=== PATIENT | female | born 1955 | race African-American/Black ===

== ENCOUNTER 2024-09-01 12:11 | Observation (INO) ==
--- NOTE | 2024-09-01 12:51 | Emergency Department Note ---
HPI - General Adult General Chief complaint: General Complaint Stated complaint: Sent from [facility] Time Seen by Provider: 09/01/24 12:18 Source: patient and caregiver Mode of arrival: walk-in Limitations: no limitations History of Present Illness HPI narrative: This is a 69 year old female patient that presents to the ER with c/o needing a blood transfusion for low H&H and feels "wobbly" when her H&H is low. Patient denies any chest pain, abdominal pain, back pain, fever, chills, or N/V. Associated symptoms: Reports denies other symptoms Treatments prior to arrival: Reports none Related Data Home Medications Medication Instructions Recorded Confirmed acetaminophen 325 mg tablet 650 mg PO Q6H PRN fever or pain 09/01/24 09/01/24 allopurinol 100 mg tablet 100 mg PO DAILY 09/01/2407/23 amlodipine 10 mg tablet 10 mg PO DAILY 09/01/2407/23 apixaban 5 mg tablet (Eliquis) 5 mg PO Q12H 09/01/24 0 09/01/24 aspirin 81 mg tablet,delayed 81 mg PO DAILY 09/01/24 0 09/01/24 release (Enteric Coated Aspirin) atorvastatin 20 mg tablet 20 mg PO .hs 09/01/24 cetirizine 10 mg tablet 10 mg PO .hs 09/01/24 diphenhydramine HCl 25 mg capsule 50 mg PO Q6H PRN all ergic reaction 09/01/24 09/01/24 (Benadryl) docusate sodium 100 mg capsule 100 mg PO BID 09/01/24 09/01/24 (Colace) famotidine 40 mg tablet 40 mg PO DAILY 09/01/2407/23 guaifenesin 100 mg/5 mL oral 200 mg PO Q6H PRN cough 0 09/01/24 09/01/24 liquid (Adult Tussin Chest Congestion) hydralazine 25 mg tablet 25 mg PO Q8H 09/01/24 ipratropium 0.5 mg-albuterol 3 mg 3 ml inhalation Q6H PRN shortness 09/01/24 09/01/24 (2.5 mg base)/3 mL nebulization of breath or wheezing soln levothyroxine 200 mcg tablet 200 mcg PO DAILY 09/01/24 09/01/24 losartan 50 mg tablet 50 mg PO DAILY 09/01/2407/23 melatonin 10 mg capsule 10 mg PO .hs 09/01/24 meloxicam 7.5 mg tablet 7.5 mg PO Q12H 09/01/2407/23 menthol 10 mg lozenges 10 mg mucous membrane Q2H IN N sore 09/01/24 09/01/24 throat metformin 1,000 mg tablet 1,000 mg PO Q12H 09/01/24 naphazoline 0.025 %-pheniramine 1 drp ophthalmic (eye) Q12H PRN 09/01/24 09/01/24 0.3 % eye drops (Allergy Eye allergy symptoms (naphazoline-pheniramine)) oxymetazoline 0.05 % nasal spray 2 spray intranasal Q1 2H PRN nasal 09/01/24 09/01/24 (Nasal [place] (oxymetazoline)) congestion umeclidinium 62.5 mcg-vilanterol 1 inh inhalation Q24H 09/01/24 09/01/24 25 mcg/actuation powdr for inhalation (Anoro Ellipta) Allergies Allergy/AdvReac Type Severity Reaction Status Date / Time shrimp Allergy Unknown Verified 09/01/24 12:41 PERNELL Inhibitors Allergy Verified 09/01/24 12:41 baclofen Allergy Verified 09/01/24 12:41 black pepper Allergy Verified 09/01/24 12:41 iodine Allergy Verified 09/01/24 12:41 lisinopril Allergy Verified 09/01/24 12:41 peanut Allergy Verified 09/01/24 12:41 Review of Systems Status of ROS 10 or more systems reviewed and unremark able except as noted in history and below Constitutional Denies: fever, chills, change in weight, fatigue, malaise or night sweats Eyes Denies: change in vision, blurry vision, blind spots or light sensitivity Ears, nose, mouth, and throat Denies: throat pain, neck pain, throat swelling, difficulty swallowing, hoarseness, mouth pain or swelling of lips/tongue Cardiovascular Denies: chest pain, palpitations, edema, swelling of feet/ankles, lightheadedness or shortness of breath with exertion Respiratory Denies: shortness of breath, cough, wheezing, stridor, pain on inspiration, change in phlegm color or coughing up blood Gastrointestinal Denies: abdominal pain, nausea, vomiting, coffee grounds in vomit, heartburn, diarrhea or constipation Genitourinary Denies: painful urination, urinary frequency, urinary urgency, urinary incontinence or blood in urine Musculoskeletal Denies: back pain, neck pain, extremity pain, extremity swelling, joint pain or limited range of motion Integumentary/Breast Denies: rash, itching, redness, skin pain, skin tenderness or skin swelling Neurological Denies: headache, numbness in extremities, weakness in extremities, lack of coordination, dizziness, vertigo or confusion Psychiatric Denies: anxiety, mood swings, panic attacks, change in sleep pattern, hopelessness, loss of interest or irritability Endocrine Denies: excessive urination, excessive thirst, fatigue, cold intolerance, excessive sweating, flushing or heat intolerance Hematologic/Lymphatic Denies: easy bruising, easy bleeding or enlarged lymph n odes Allergic/Immunologic Denies: hives, throat swelling, tongue swelling, facial swelling, wheezing or itchy eyes PFSH [facility] Medical History (Updated 09/01/24 @ 12:46 by Stephanie Smart RN) Diabetes mellitus Major depressive disorder Hyperlipidemia Essential hypertension COPD (chronic obstructive pulmonary disease) Diastolic heart failure Voice and resonance disorder Hypothyroidism Gout Dry eye syndrome CKD (chronic kidney disease) Cataracts, bilateral Social History Smoking status: never smoker Second hand tobacco smoke exposure: No Within the past year, how often did you have a drink containing alcohol: never Within the past year, how often did you have six or more drinks on one occasion: never Score interpretation: A score less than 3 is consistent with normal alcohol consumption. Non-prescribed substance use: denies use What is your current living situation: I presently have a place to live Problems where you live: no known problems In the past 12 months, utilities in danger of being shut off: no In past 12 months, lack of transportation kept you from medical appts, meetings, work, or getting things needed for daily living: No How hard is it for you to pay for the very basics like food, housing, medical care, and heating: decline to answer Past 12 mos, fear food will run out before able to buy more: never true In past 12 months, food didn't last until money to buy more: never true Are you following a diet prescribed by a doctor: No Are you following a special diet: No Do you want help finding or keeping work or a job: I do not need or want help Known occupational exposures/hazards: No Highest level of school completed/degree received: decline to answer Do you want help with school or training: No How many days of moderate to strenuous exercise, like a brisk walk, did you do in the last 7 days: decline to answer Caffeine: No How often does anyone, including family, friends and others, physically hurt you : never How often does anyone, including family, friends and others, insult or talk down to you: never How often does anyone, including family, friends and others, threaten you with harm: never How often does anyone, including family, friends and others, scream or curse at you: never Firearms in home: no Do you need help with ADLs: I don't need any help Due to a physical, mental, or emotional condition, do you have difficulty doing errands alone such as visiting a doctor's office or shopping: No Little interest or pleasure in doing things: nearly every day Feeling down, depressed, or hopeless: nearly every day Due to disability, difficulty making decisions: No Do you think of yourself as: straight/heterosexual Gender Identity: decline to answer Are you currently sexually active: No Are you using contraception or practicing any form of control: No service: No Exam Constitutional: normal general appearance and no apparent distress Vital Signs - 24 hr 09/01/24 12:37 Temperature 98.1 F Pulse Rate 57 L Respiratory Rate 16 Blood Pressure 151/47 Pulse Oximetry 99 Oxygen Delivery Me thod Room Air HENMT: normocephalic, head/scalp atraumatic, hearing grossly normal bilaterally, external ears normal, EACs normal, nasal mucous membranes normal, external nose normal, oral mucous membranes normal and oropharynx normal Eyes: PERRL, EOMs intact bilaterally, conjunctivae normal and no scleral icterus Neck/C-Spine: visual inspection normal and trachea midline Lymph: no lymphadenopathy noted Chest: inspection of chest normal Respiratory: breath sounds equal bilaterally, normal respiratory effort, clear to auscultation bilaterally, no wheezes, no rales, no retractions, no use of accessory muscles and chest percussion normal Cardiovascular: normal heart rate noted, regular rhythm noted, no gallop, no rub, no murmur, no JVD, no clicks, peripheral pulses 2+ throughout, no bruits noted and no additional abnormal heart sounds Gastrointestinal: abdomen normal to inspection, abdomen soft to palpation, nontender to palpation, nontender to percussion, nondistended, normoactive bowel sounds, no hepatosplenomegaly, no masses, no pulsatile mass, no ascites and no hernia Genitourinary: no CVA tenderness Back/Pelvis: spine normal to inspection Extremities: normal to inspection, normal to palpation, no tenderness, full ROM, no joint enlargement and no deformity Neurology: no movement abnormality noted, no sensory deficits noted, speech normal, no fasciculations noted and GCS normal Psychiatry: mental status grossly normal, oriented x3 and thought process normal Skin: skin color normal Course Course Hospital Course: 1258: due to patient having Low H&H will admit patient to the medical floor for blood transfusion.VSS, no s/s of acute distress noted Vital Signs Vital signs: Vital Signs Temperature 98.1 F 09/01/24 12:37 Pulse Rate 57 L 09/01/24 12:37 Respiratory Rate 16 09/01/24 12:37 Blood Pressure 151/47 09/01/24 12:37 Pulse Oximetry 99 09/01/24 12:37 Oxygen Delivery Method Room Air 09/01/24 12:37 Temperature 98.1 F 09/01/24 12:37 Pulse Rate 57 L 09/01/24 12:37 Respiratory Rate 16 09/01/24 12:37 Blood Pressure 151/47 09/01/24 12:37 Pulse Oximetry 99 09/01/24 12:37 Oxygen Delivery Method Room Air 09/01/24 12:37 Medical Decision Making Differential Diagnosis Differential Diagnosis: viral illness Medical Records Medical records reviewed: Yes I reviewed the patient's medical records Lab Data Lab results reviewed: Yes I reviewed the patient's lab results Discharge Plan Discharge Patient Disposition: Admitted As Observation Condition: Stable Clinical Impression: Anemia, Low hemoglobin Time of Disposition: 13:00
[2024-09-01] MEDS ORDERED: ACETAMINOPHEN 500 MG TABLET PO PRN (13:01)
[2024-09-01] MEDS ORDERED: MAGNESIUM, ALUMINUM HYDROXIDE 30 ML ORAL.SUSP PO PRN (13:01)
[2024-09-01] MEDS: METFORMIN HCL 500 MG TABLET PO SCH (16:00)
[2024-09-01] MEDS: HYDRALAZINE HCL 25 MG TABLET PO SCH (16:00)
[2024-09-01] MEDS ORDERED: IPRATROPIUM/ALBUTEROL SULFATE 3 ML AMPUL.NEB INH PRN (16:00)
[2024-09-01] MEDS ORDERED: diphenhydrAMINE HCL 25 MG CAP PO PRN (16:00)
[2024-09-01] MEDS ORDERED: ACETAMINOPHEN 325 MG TABLET PO PRN (16:00)
[2024-09-01] MEDS: ALBUTEROL SULFATE INH SCH (16:00)
[2024-09-01] MEDS: IPRATROPIUM INH SCH (16:00)
[2024-09-01] MEDS: 0.9 % SODIUM CHLORIDE 250 ML IV ONE (17:00)
[2024-09-01] MEDS: APIXABAN 2.5 MG TABLET PO SCH (20:51)
[2024-09-01] MEDS: DOCUSATE SODIUM 100 MG CAPSULE PO SCH (20:51)
--- NOTE | 2024-09-01 22:35 | Progress Note ---
Progress Note: Subjective Subjective Interval history: Consulted on this 69 yo female in the ED this afternoon from [place] with recent onset KWOK, dizziness, weakness and general malaise. On her arrival in the ED she was denying any chest or abdominal pain, recent onset NVD, LE edema. Attending at the [facility] sent her to the ED when she was found to have a hemoglobin of just over 6. She does not have a PMHx anemia. She was initially typed and crossed for a single unit, I changed that to two units to reassess in a.m. Also ordered a full anemia profile, retic count, EKG and CXR as well as serial hemoccult screens for possible GIB. Exam Constitutional: normal general appearance and no apparent distress Vital Signs - 24 hr 09/01/24 12:37 09/01/24 12:45 09/01/24 13:01 Temperature 98.1 F Pulse Rate 57 L 52 L 53 L Pulse Rate [Left] Respiratory Rate 16 20 18 Blood Pressure 151/47 138/50 148/48 Blood Pressure [Le ft Arm] Pulse Oximetry 99 97 96 Oxygen Delivery Me thod Room Air Room Air Room Air 09/01/24 14:30 09/01/24 14:32 09/01/24 14:32 Temperature 98.1 F 98.1 F Pulse Rate 50 L Pulse Rate [Left] 61 Respiratory Rate 18 19 Blood Pressure 152/63 Blood Pressure [Le ft Arm] 147/46 Pulse Oximetry 96 96 Oxygen Delivery Me thod Room Air Room Air 09/01/24 17:03 09/01/24 17:25 09/01/24 18:25 Temperature 97.9 F 98.1 F 98.4 F Pulse Rate 54 L 56 L 62 Pulse Rate [Left] Respiratory Rate 20 20 20 Blood Pressure 153/47 147/45 131/41 Blood Pressure [Le ft Arm] Pulse Oximetry 97 96 97 Oxygen Delivery Me thod 09/01/24 20:00 09/01/24 20:00 09/01/24 20:20 Temperature 98.2 F 98.0 F Pulse Rate 58 L Pulse Rate [Left] 63 66 Respiratory Rate 20 21 18 Blood Pressure 103/48 Blood Pressure [Le ft Arm] 156/50 Pulse Oximetry 99 97 Oxygen Delivery Me thod Room Air HENMT: normocephalic, head/scalp atraumatic and oral mucous membranes normal Eyes: PERRL, EOMs intact bilaterally and no scleral icterus Neck/C-Spine: visual inspection normal, trachea midline and cervical full ROM noted Lymph: no lymphadenopathy noted Chest: inspection of chest normal Respiratory: breath sounds equal bilaterally and normal respiratory effort Cardiovascular: normal heart rate noted and regular rhythm noted Gastrointestinal: abdomen normal to inspection and abdomen soft to palpation Genitourinary: no CVA tenderness Back/Pelvis: spine normal to inspection and no thoracic spine tenderness Extremities: normal to inspection, normal to palpation and full ROM Neurology: community sports coordinator II-XII intact, no focal motor deficit noted and GCS normal Psychiatry: mental status grossly normal and oriented x3 Skin: skin color normal and no mottling no pallor or loss of sheen Progress Note: Objective Labs Labs: I reviewed all existing labs prior to admission and subsequent to updates. Pulse Oximetry SpO2 results: 97% RA Attestation: I have reviewed the pertinent pulse oximetry results. Progress Note: A&P Assessment and Plan (1) Anemia in chronic illness: Onset Date: ~09/01/24 Assessment and Plan: Transfuse (2) units PRBC, recheck H/H in a.m. Telemetry overnight. (2) HTN (hypertension): Onset Date: ~09/01/24 Assessment and Plan: Resume home meds as directed, low salt diet, no change to meds at this time Fall Risk Details [place] Fall Scale Risk Level: High Fall Risk Was a [facility] Med Consult for Fall Risk requested: yes Current Medications: Current Medications Acetaminophen (Acetaminophen 500 Mg Tablet) 500 mg PO Q6H PRN PRN Reason: MILD PAIN SCALE 1-4 Acetaminophen (Acetaminophen 325 Mg Tablet) 650 mg PO Q6H PRN PRN Reason: MILD PAIN SCALE 1-4 Albuterol Sulfate (Ipratropium/Albuterol Sulfate 3 Ml Ampul.Neb) 3 ml INH Q6H PRN PRN Reason: Shortness Of Breath Or Wheezing Albuterol Sulfate (Ipratropium/Albuterol Sulfate Inhaler 1 Puff) 1 puff INH QID [facility] Last Admin: 09/01/24 20:51 Dose: 1 puff Amlodipine Besylate (Amlodipine Besylate 5 Mg Tablet) 10 mg PO DAILY [facility] Apixaban (Apixaban 2.5 Mg Tablet) 5 mg PO BID [facility] Last Admin: 09/01/24 20:51 Dose: 5 mg Aspirin (Aspirin 81 Mg Tablet.Dr) 81 mg PO DAILY [facility] Diphenhydramine HCl (Diphenhydramine Hcl 25 Mg Cap) 50 mg PO Q6H PRN PRN Reason: Allergic Reaction Docusate Sodium (Docusate Sodium 100 Mg Capsule) 100 mg PO BID [facility] Last Admin: 09/01/24 20:51 Dose: 100 mg Famotidine (Famotidine 20 Mg Tablet) 40 mg PO DAILY [facility] Hydralazine HCl (Hydralazine Hcl 25 Mg Tablet) 25 mg PO TID [facility] Last Admin: 09/01/24 20:51 Dose: 25 mg Insulin Human Regular (Insulin Regular, Human 100 Unit/Ml) 0 unit SUBQ ACHS PRN; Protocol PRN Reason: hyperglycemia Levothyroxine Sodium (Levothyroxine Sodium 100 Mcg Tablet) 200 mcg PO QDAC [facility] Losartan Potassium (Losartan Potassium 50 Mg Tablet) 50 mg PO DAILY [facility] Magnesium Hydroxide (Magnesium, Aluminum Hydroxide 30 Ml Oral.Susp) 30 ml PO DAILY PRN PRN Reason: Dyspepsia Metformin HCl (Metformin Hcl 500 Mg Tablet) 1,000 mg PO BIDWM [facility] Last Admin: 09/01/24 16:00 Dose: 1,000 mg Time Spent With Patient Time: Total time spent is greater than 50% in coordination of care (as documented) at patient's floor/unit and/or counseling patient: Time with patient: 25 - 35 minutes
--- NOTE | 2024-09-02 06:33 | History & Physical Report ---
H&P: HPI History of Present Illness Chief complaint: Sent from [facility] Narrative: Consulted on this 69 yo female in the ED this afternoon from [facility] with recent onset KWOK, dizziness, weakness and general malaise. On her arrival in the ED she was denying any chest or abdominal pain, recent onset NVD, LE edema. Att ending at the [facility] sent her to the ED when she was found to have a hemoglobin of just over 6. She does not have a PMHx anemia. She was initially typed and crossed for a single unit, I changed that to two units to reassess in a.m. Also ordered a full anemia profile, retic count, EKG and CXR as well as serial hemoccult screens for possible GIB. Review of Systems Status of ROS 10 or more systems reviewed and unremark able except as noted in history and below Constitutional Denies: fever, chills, change in weight, fatigue, malaise or night sweats Eyes Denies: change in vision, blurry vision, blind spots or light sensitivity Ears, nose, mouth, and throat Denies: throat pain, neck pain, throat swelling, difficulty swallowing, hoarseness, mouth pain, swelling of lips/tongue or vertigo Cardiovascular Denies: chest pain, palpitations, edema, swelling of feet/ankles, lightheadedness or shortness of breath with exertion Respiratory Denies: shortness of breath, cough, wheezing, stridor, pain on inspiration, change in phlegm color or coughing up blood Gastrointestinal Denies: abdominal pain, nausea, vomiting, coffee grounds in vomit, heartburn, diarrhea, constipation or difficulty swallowing Genitourinary Denies: painful urination, urinary frequency, urinary urgency, urinary incontinence or blood in urine Musculoskeletal Denies: back pain, neck pain, extremity pain, extremity swelling, joint pain or limited range of motion Integumentary/Breast Denies: rash, itching, redness, skin pain, skin tenderness or skin swelling Neurological Denies: headache, numbness in extremities, weakness in extremities, lack of coordination, dizziness, vertigo or confusion Psychiatric Denies: anxiety, mood swings, panic attacks, change in sleep pattern, hopelessness, loss of interest or irritability Endocrine Denies: excessive urination, excessive thirst, fatigue, cold intolerance, excessive sweating, flushing or heat intolerance Hematologic/Lymphatic Denies: easy bruising, easy bleeding or enlarged lymph nodes Allergic/Immunologic Denies: hives, throat swelling, tongue swelling, facial swelling, wheezing or itchy eyes PFSH PFSH Medical History (Updated 09/02/24 @ 06:32 by RENETTA Asher) Diabetes mellitus Major depressive disorder Hyperlipidemia Essential hypertension COPD (chronic obstructive pulmonary disease) Diastolic heart failure Voice and resonance disorder Hypothyroidism Gout Dry eye syndrome CKD (chronic kidney disease) Cataracts, bilateral Social History Smoking status: never smoker Second hand tobacco smoke exposure: No Within the past year, how often did you have a drink containing alcohol: never Within the past year, how often did you have six or more drinks on one occasion: never Score interpretation: A score less than 3 is consistent with normal alcohol consumption. Non-prescribed substance use: denies use What is your current living situation: I presently have a place to live Problems where you live: no known problems In the past 12 months, utilities in danger of being shut off: no In past 12 months, lack of transportation kept you from medical appts, meetings, work, or getting things needed for daily living: No How hard is it for you to pay for the very basics like food, housing, medical care, and heating: decline to answer Past 12 mos, fear food will run out before able to buy more: never true In past 12 months, food didn't last until money to buy more: never true Are you following a diet prescribed by a doctor: No Are you following a special diet: No Do you want help finding or keeping work or a job: I do not need or want help Known occupational exposures/hazards: No Highest level of school completed/degree received: Jr High Do you want help with school or training: No How many days of moderate to strenuous exercise, like a brisk walk, did you do in the last 7 days: decline to answer Caffeine: No How often does anyone, including family, friends and others, physically hurt you : never How often does anyone, including family, friends and others, insult or talk down to you: never How often does anyone, including family, friends and others, threaten you with harm: never How often does anyone, including family, friends and others, scream or curse at you: never Firearms in home: no Do you need help with ADLs: I don't need any help Due to a physical, mental, or emotional condition, do you have difficulty doing errands alone such as visiting a doctor's office or shopping: No Little interest or pleasure in doing things: nearly every day Feeling down, depressed, or hopeless: nearly every day Due to disability, difficulty making decisions: No Do you think of yourself as: straight/heterosexual Gender Identity: decline to answer Are you currently sexually active: No Are you using contraception or practicing any form of control: No service: No Meds Home Medications and Allergies Home Medications Medication Instructions Recorded Confirmed Type acetaminophen 325 mg tablet 650 mg PO Q6H PRN fever or pain 09/01/24 09/01/24 History allopurinol 100 mg tablet 100 mg PO DAILY 09/01/2407/23 History amlodipine 10 mg tablet 10 mg PO DAILY 09/01/2407/23 History apixaban 5 mg tablet (Eliquis) 5 mg PO Q12H 09/01/24 0 09/01/24 History aspirin 81 mg tablet,delayed 81 mg PO DAILY 09/01/24 0 09/01/24 History release (Enteric Coated Aspirin) atorvastatin 20 mg tablet 20 mg PO .hs 09/01/24 History cetirizine 10 mg tablet 10 mg PO .hs 09/01/24 History diphenhydramine HCl 25 mg capsule 50 mg PO Q6H PRN all ergic reaction 09/01/24 09/01/24 History (Benadryl) docusate sodium 100 mg capsule 100 mg PO BID 09/01/24 09/01/24 History (Colace) famotidine 40 mg tablet 40 mg PO DAILY 09/01/2407/23 History guaifenesin 100 mg/5 mL oral 200 mg PO Q6H PRN cough 0 09/01/24 09/01/24 History liquid (Adult Tussin Chest Congestion) hydralazine 25 mg tablet 25 mg PO Q8H 09/01/24 History ipratropium 0.5 mg-albuterol 3 mg 3 ml inhalation Q6H PRN shortness 09/01/24 09/01/24 History (2.5 mg base)/3 mL nebulization of breath or wheezing soln levothyroxine 200 mcg tablet 200 mcg PO DAILY 09/01/24 09/01/24 History losartan 50 mg tablet 50 mg PO DAILY 09/01/2407/23 History melatonin 10 mg capsule 10 mg PO .hs 09/01/24 History meloxicam 7.5 mg tablet 7.5 mg PO Q12H 09/01/2407/23 History menthol 10 mg lozenges 10 mg mucous membrane Q2H AL N sore 09/01/24 09/01/24 History throat metformin 1,000 mg tablet 1,000 mg PO Q12H 09/01/24 History naphazoline 0.025 %-pheniramine 1 drp ophthalmic (eye) Q12H PRN 09/01/24 09/01/24 History 0.3 % eye drops (Allergy Eye allergy symptoms (naphazoline-pheniramine)) oxymetazoline 0.05 % nasal spray 2 spray intranasal Q1 2H PRN nasal 09/01/24 09/01/24 History (Nasal [place] (oxymetazoline)) congestion umeclidinium 62.5 mcg-vilanterol 1 inh inhalation Q24H 09/01/24 09/01/24 History 25 mcg/actuation powdr for inhalation (Anoro Ellipta) Allergies Allergy/AdvReac Type Severity Reaction Status Date / Time shrimp Allergy Unknown Verified 09/01/24 12:41 PERNELL Inhibitors Allergy Verified 09/01/24 12:41 baclofen Allergy Verified 09/01/24 12:41 black pepper Allergy Verified 09/01/24 12:41 iodine Allergy Verified 09/01/24 12:41 lisinopril Allergy Verified 09/01/24 12:41 peanut Allergy Verified 09/01/24 12:41 Exam Constitutional: normal general appearance, no apparent distress and average body habitus Vital Signs - 24 hr 09/01/24 12:37 09/01/24 12:45 09/01/24 13:01 Temperature 98.1 F Pulse Rate 57 L 52 L 53 L Pulse Rate [Left] Respiratory Rate 16 20 18 Blood Pressure 151/47 138/50 148/48 Blood Pressure [Le ft Arm] Pulse Oximetry 99 97 96 Oxygen Delivery Me thod Room Air Room Air Room Air 09/01/24 14:30 09/01/24 14:32 09/01/24 14:32 Temperature 98.1 F 98.1 F Pulse Rate 50 L Pulse Rate [Left] 61 Respiratory Rate 18 19 Blood Pressure 152/63 Blood Pressure [Le ft Arm] 147/46 Pulse Oximetry 96 96 Oxygen Delivery Me thod Room Air Room Air 09/01/24 17:03 09/01/24 17:25 09/01/24 18:25 Temperature 97.9 F 98.1 F 98.4 F Pulse Rate 54 L 56 L 62 Pulse Rate [Left] Respiratory Rate 20 20 20 Blood Pressure 153/47 147/45 131/41 Blood Pressure [Le ft Arm] Pulse Oximetry 97 96 97 Oxygen Delivery Me thod 09/01/24 20:00 09/01/24 20:00 09/01/24 20:20 Temperature 98.2 F 98.0 F Pulse Rate 58 L Pulse Rate [Left] 63 66 Respiratory Rate 20 21 18 Blood Pressure 103/48 Blood Pressure [Le ft Arm] 156/50 Pulse Oximetry 99 [facility] 09/01/24 21:20 09/02/24 00:12 09/02/24 06:00 Temperature 98.1 F 99.4 F 97.9 F Pulse Rate 64 Pulse Rate [Left] 51 L 53 L Respiratory Rate 20 19 19 Blood Pressure 153/70 Blood Pressure [Le ft Arm] 129/53 145/49 Pulse Oximetry 97 97 97 [facility] Room Air HENMT: normocephalic, head/scalp atraumatic and oral mucous membranes normal Eyes: PERRL and EOMs intact bilaterally Neck/C-Spine: visual inspection normal, trachea midline and cervical full ROM noted scar to lower anterior neck from thyroidectomy Lymph: no lymphadenopathy noted Chest: inspection of chest normal Respiratory: breath sounds equal bilaterally, normal respiratory effort, no wheezes and no rales Cardiovascular: normal heart rate noted, regular rhythm noted, no gallop, no rub, no murmur, no JVD and peripheral pulses 2+ throughout Gastrointestinal: abdomen normal to inspection and abdomen soft to palpation obese Genitourinary: bladder normal to palpation Back/Pelvis: spine normal to inspection, no thoracic spine tenderness and no lumbar spine tenderness Extremities: normal to inspection, normal to palpation and full ROM no edema Neurology: record press operator II-XII intact, speech normal, coordination normal and GCS normal facial tick noted Psychiatry: cooperative and affect normal Feel stressed/tense/nervous/anxious/difficulty sleeping: not at all Skin: skin color normal and no rash no pallor Assessment and Plan Assessment and Plan (1) Anemia in chronic illness: Onset Date: ~09/01/24 Assessment and Plan: Transfuse (2) units PRBC, recheck H/H in a.m. Telemetry overnight. Code(s): D63.8 - Anemia in other chronic diseases classified elsewhere (2) HTN (hypertension): Onset Date: ~09/01/24 Assessment and Plan: Resume home meds as directed, low salt diet, no change to meds at this time Qualifiers: Hypertension type: primary hypertension Qualified Code(s): I10 - Essential (primary) hypertension Code(s): I10 - Essential (primary) hypertension Plan Admit to obs (see orders) Supplemental O2 prn Telemetry Transfuse (2) units PRBCs Check for occult blood ro GIB Fall precautions Anemia profile Resume home meds as directed, low salt diet, no change to meds at this time Results Labs Labs: I have personally reviewed existing and recent labs for this patient from both [facility] and our ED. Hgb 6.4. BNP 116, retic count 1.2%. Anemia profile WNL. T&C performed for 2 units PRBC. Hemoccult ordered when available, no record of recent. Pulse Oximetry SpO2 results: 99% RA Attestation: I have reviewed the pertinent pulse oximetry results.
[2024-09-02 06:44] LABS: Basophils #(Absolute) Auto 0.1 (0.0-0.1); Basophils%(Percent) Auto 0.9 (0.1-0.85); Eosinophils#(Absolute)Auto 0.6 (0.0-0.2); Eosinophils%(Percent) Auto 5.5 % (0.4-2.8); Granulocytes % - Auto 60.4 % (47.8-71.3); Granulocytes#(Absolute)- Auto 6.2 (2.3-6.0); Hematocrit 24.5 % (35.9-46.7); Monocytes #(Absolute)- Auto 1.1 (1.1-3.1); Monocytes %(Percent)- Auto 10.3 % (3.6-9.8); Platelet Count 453 K/uL (152-353); White Blood Count 10.3 K/uL (4.3-9.3)
[2024-09-02 06:49] LABS: Potassium 4.4 mmol/L (3.6-5.2)
[2024-09-02] MEDS: AMLODIPINE BESYLATE 5 MG TABLET PO SCH (09:31)
[2024-09-02] MEDS: FAMOTIDINE 20 MG TABLET PO SCH (09:31)
[2024-09-02] MEDS: LOSARTAN POTASSIUM 50 MG TABLET PO SCH (09:31)
[2024-09-02] MEDS: ASPIRIN 81 MG TABLET.DR PO SCH (09:31)
[2024-09-02] MEDS: LEVOTHYROXINE SODIUM 100 MCG TABLET PO SCH (09:33)
[2024-09-02] MEDS ORDERED: 0.9 % SODIUM CHLORIDE 250 ML IV ONE (09:48)
--- NOTE | 2024-09-02 10:58 | Discharge Summary ---
DS: Providers Provider Date of admission: 09/01/24 13:01 Primary care physician: Ashley Gonzáles DO DS: Diagnosis Discharge Diagnosis (1) Anemia in chronic illness: Onset Date: ~09/01/24 (2) HTN (hypertension): Onset Date: ~09/01/24 Qualifiers: Hypertension type: primary hypertension Qualified Code(s): I10 - Essential (primary) hypertension DS: Summary Hospital Course Hospital Course: Ms. Boss was admitted on 09/01/24 from [facility] with recent onset KWOK, dizziness, weakness and general malaise. On her arrival in the ED she was de nying any chest or abdominal pain, recent onset NVD, LE edema. [facility] the [facility] her to the ED when she was found to have a hemoglobin of just over 6. She does not have a PMHx anemia. She was initially typed and crossed for a single unit, then later transfused a second unit during her stay after Hgb increased only to 7.6. Occult stool pending and patient is on eliquis. Patient was discharged on 09/02/24 back to [facility] to follow up with PCP. Status at Discharge Overall status at discharge: patient is back to baseline Time Spent with Patient Time attestation: Total time spent providing and/or coordinating discharge services: 35 min Time spent: greater than 30 minutes Exam Constitutional: normal general appearance and no apparent distress Vital Signs - 24 hr 09/01/24 12:37 09/01/24 12:45 09/01/24 13:01 Temperature 98.1 F Pulse Rate 57 L 52 L 53 L Pulse Rate [Left] Respiratory Rate 16 20 18 Blood Pressure 151/47 138/50 148/48 Blood Pressure [Le ft Arm] Pulse Oximetry 99 97 96 Oxygen Delivery Me thod Room Air Room Air Room Air 09/01/24 14:30 09/01/24 14:32 09/01/24 14:32 Temperature 98.1 F 98.1 F Pulse Rate 50 L Pulse Rate [Left] 61 Respiratory Rate 18 19 Blood Pressure 152/63 Blood Pressure [Le ft Arm] 147/46 Pulse Oximetry 96 96 Oxygen Delivery Me thod Room Air Room Air 09/01/24 17:03 09/01/24 17:25 09/01/24 18:25 Temperature 97.9 F 98.1 F 98.4 F Pulse Rate 54 L 56 L 62 Pulse Rate [Left] Respiratory Rate 20 20 20 Blood Pressure 153/47 147/45 131/41 Blood Pressure [Le ft Arm] Pulse Oximetry 97 96 97 Oxygen Delivery Me thod 09/01/24 20:00 09/01/24 20:00 09/01/24 20:20 Temperature 98.2 F 98.0 F Pulse Rate 58 L Pulse Rate [Left] 63 66 Respiratory Rate 20 21 18 Blood Pressure 103/48 Blood Pressure [Le ft Arm] 156/50 Pulse Oximetry 99 97 Oxygen Delivery Me thod Room Air 09/01/24 21:20 09/02/24 00:12 09/02/24 06:00 Temperature 98.1 F 99.4 F 97.9 F Pulse Rate 64 Pulse Rate [Left] 51 L 53 L Respiratory Rate 20 19 19 Blood Pressure 153/70 Blood Pressure [Le ft Arm] 129/53 145/49 Pulse Oximetry 97 97 97 Oxygen Delivery Ma thod Room Air Room Air 09/02/24 08:00 09/02/24 10:15 09/02/24 10:34 Temperature 97.7 F 97.9 F 98.1 F Pulse Rate 68 46 L Pulse Rate [Left] 54 L Respiratory Rate 19 20 20 Blood Pressure 117/63 157/64 Blood Pressure [Le ft Arm] 164/50 Pulse Oximetry 95 97 97 Oxygen Delivery Me thod Room Air HENMT: normocephalic, head/scalp atraumatic, hearing grossly normal bilaterally, external ears normal, EACs normal, nasal mucous membranes normal, external nose normal, oral mucous membranes normal and oropharynx normal Eyes: PERRL, EOMs intact bilaterally, conjunctivae normal and no scleral icterus Neck/C-Spine: visual inspection normal and trachea midline Lymph: no lymphadenopathy noted Chest: inspection of chest normal Respiratory: breath sounds equal bilaterally, normal respiratory effort, clear to auscultation bilaterally, no wheezes, no rales, no retractions, no use of accessory muscles and chest percussion normal Cardiovascular: normal heart rate noted, regular rhythm noted, no gallop, no rub, no murmur, no JVD, no clicks, peripheral pulses 2+ throughout, no bruits noted and no additional abnormal heart sounds Gastrointestinal: abdomen normal to inspection, abdomen soft to palpation, nontender to palpation, nontender to percussion, nondistended, normoactive bowel sounds, no hepatosplenomegaly, no masses, no pulsatile mass, no ascites and no hernia Genitourinary: no CVA tenderness Back/Pelvis: spine normal to inspection Extremities: normal to inspection, normal to palpation, no tenderness, full ROM, no joint enlargement and no deformity Neurology: no movement abnormality noted, no sensory deficits noted, speech normal, no fasciculations noted and GCS normal Psychiatry: mental status grossly normal, oriented x3 and thought process normal Skin: skin color normal DS: Data Data Completed and Pending Labs on day of discharge: Labs from last 24 hours 09/02/24 09/01/24 09/01/24 06:25 22:50 06:35 WBC 10.3 H RBC 3.4 L Hgb 7.6 L Hct 24.5 L MCV 73.0 L MCH 22.7 L MCHC 31.0 L RDW 19.4 H Plt Count 453 H MPV 7.5 Gran % 60.4 Lymph % (Auto) 22.9 [place] % (Auto) 10.3 H Eos % (Auto) 5.5 H Baso % (Auto) 0.9 H Lymph # (Auto) 2.4 [place] # (Auto) 1.1 Eos # (Auto) 0.6 H Baso # (Auto) 0.1 Absolute Gran (auto) 6.2 H Retic Count 1.2 Sodium 143 Potassium 4.4 Chloride 111.0 H Carbon Dioxide 25 Anion Gap 7.0 BUN 21 H Creatinine 0.9 Estimated GFR 69.2 Glucose 103 Calcium 8.4 L TIBC 315 Ferritin 12 B-Natriuretic Peptide 116.0 H Vitamin B12 195.0 Blood Type B Positive Antibody Screen Negative Crossmatch (AHG) See Detail Discharge Plan Discharge Disposition: [facility] Condition: Stable Discharge Medications: Continued allopurinol 100 mg tablet 100 mg PO DAILY amlodipine 10 mg tablet 10 mg PO DAILY umeclidinium-vilanterol [Anoro Ellipta] 62.5-25 mcg/actuation blister with device 1 inh INHALATION Q24H aspirin [Enteric Coated Aspirin] 81 mg tablet,delayed release (DR/EC) 81 mg PO DAILY atorvastatin 20 mg tablet 20 mg PO .hs levothyroxine 200 mcg tablet 200 mcg PO DAILY losartan 50 mg tablet 50 mg PO DAILY melatonin 10 mg capsule 10 mg PO .hs famotidine 40 mg tablet 40 mg PO DAILY cetirizine 10 mg tablet 10 mg PO .hs docusate sodium [Colace] 100 mg capsule 100 mg PO BID Eliquis 5 mg tablet 5 mg PO Q12H metformin 1,000 mg tablet 1,000 mg PO Q12H meloxicam 7.5 mg tablet 7.5 mg PO Q12H hydralazine 25 mg tablet 25 mg PO Q8H acetaminophen 325 mg tablet 650 mg PO Q6H PRN (Reason: fever or pain) diphenhydramine HCl [Benadryl] 25 mg capsule 50 mg PO Q6H PRN (Reason: allergic reaction) guaifenesin [Adult Tussin Chest Congestion] 100 mg/5 mL liquid 200 mg PO Q6H PRN (Reason: cough) ipratropium-albuterol 0.5 mg-3 mg(2.5 mg base)/3 mL solution for nebulization 3 ml inhalation Q6H PRN (Reason: shortness of breath or wheezing) oxymetazoline [Nasal [place] (oxymetazoline)] 0.05 % spray,non-aerosol 2 spray intranasal Q12H PRN (Reason: nasal congestion) menthol 10 mg lozenge 10 mg mucous membrane Q2H PRN (Reason: sore throat) Allergy Eye (naphazoline-phen) 0.025-0.3 % drops 1 drp ophthalmic (eye) Q12H PRN (Reason: allergy symptoms) Discharge Orders: Discharge Order (Routine); Ordered 09/02/24 Ordered By: [facility] Course: Ms. Boss was admitted on 09/01/24 from [facility] with recent onset KWOK, dizziness, weakness and general malaise. On her arrival in the ED she was denying any chest or abdominal pain, recent onset NVD, LE edema. Attending at the [facility] sent her to the ED when she was found to have a hemoglobin of just over 6. She does not have a PMHx anemia. She was initially typed and crossed for a single unit, then later transfused a second unit during her stay after Hgb increased only to 7.6. Occult stool pending and patient is on eliquis. Patient was discharged on 09/02/24 back to [facility] to follow up with PCP. Interventions: Discharge Assessment Last Done: 09/02/24 13:18 MED/SURG & ICU Observation Charge Sheet Last Done: 09/02/24 13:20 Print Language: Surinamese Follow-Ups: Ashley Gonzáles DO [Primary Care Provider, Medical]
[2024-09-02 12:56] VITALS: RESP 20; TEMP 98.1
[2024-09-02 14:11] VITALS: BP 147/64; PULSE 54
== END 2024-09-02 14:12 ==
LOC: MS 12:11 → ED 12:11 → MS 14:30
PROVIDERS: ADMIT Physician Assistant Medical; ATTEND Physician Assistant Medical
DX: Z91.013 Allergy to seafood; Z88.1 Allergy status to other antibiotic agents; Z79.01 Long term (current) use of anticoagulants; Z79.1 Long term (current) use of non-steroidal anti-inflammatories (NSAID); Z79.82 Long term (current) use of aspirin; E78.5 Hyperlipidemia, unspecified; N18.9 Chronic kidney disease, unspecified; Z79.899 Other long term (current) drug therapy; E11.22 Type 2 diabetes mellitus with diabetic chronic kidney disease; J44.9 Chronic obstructive pulmonary disease, unspecified; Z91.010 Allergy to peanuts; I50.30 Unspecified diastolic (congestive) heart failure; Z79.890 Hormone replacement therapy; Z88.8 Allergy status to other drugs, medicaments and biological substances; F32.9 Major depressive disorder, single episode, unspecified; E11.36 Type 2 diabetes mellitus with diabetic cataract; E03.9 Hypothyroidism, unspecified; I13.0 Hypertensive heart and chronic kidney disease with heart failure and stage 1 through stage 4 chronic kidney disease, or unspecified chronic kidney disease; D63.1 Anemia in chronic kidney disease